=== PATIENT | female | born 1980 | race Caucasian/White ===

== ENCOUNTER 2017-06-10 13:45 | Emergency (ER) | payer OTHER ==
[~2017-06-10] VITALS: Ht 182.9 cm; Wt 91.8 kg
[2017-06-10] MEDS ORDERED: CITA20TA5 PO (15:18)
[2017-06-10 15:40] LABS: HEMOGLOBIN 14.6 g/dL (11.7-16.4); WHITE BLOOD COUNT 7.4 x10^3/uL (3.4-10)
[2017-06-10 15:53] LABS: BLOOD UREA NITROGEN 8 mg/dL (7-18)
[2017-06-10 17:09] VITALS: BP 139/80
== END 2017-06-10 17:33 | disposition home or self-care (01) ==
LOC: ED 17:00
DX: O20.0 Threatened abortion (principal); Z3A.01 Less than 8 weeks gestation of pregnancy
CPT/HCPCS: 36415; 76801; 80048; 81003; 82040; 84702; 85025; 86901; 99285